=== PATIENT | female | born 1995 | race Caucasian/White ===

== ENCOUNTER 2022-06-20 08:06 | Outpatient (CLI) | payer OTHER, SELFPAY ==
--- NOTE | ~2022-06-20 | US_ITS ---
US breast RT limited DATE: 06/20/2022 08:27 INDICATION: Right breast lump TECHNIQUE: Sonographic imaging of the right breast at 2:00 and 3:00 area of clinical complaint of josr ast lump COMPARISON: None FINDINGS: The patient does not feel the lump today. No suspicious mass or shadowing, cyst or other significant sonographic finding is identified at 2:00 to 3:00. IMPRESSION: BI-RADS Category 1: Negative Reviewed, dictated and finalized at [facility]. Reviewed, dictated and finalized at location A.
== END 2022-06-20 08:07 ==
PROVIDERS: PCP Physician Assistant Medical; Visit Provider Student in an Organized Health Care Education/Training Program
DX: R92.8 Other abnormal and inconclusive findings on diagnostic imaging of breast (principal)
CPT/HCPCS: 76642

== ENCOUNTER 2022-12-10 09:29 | Outpatient (CLI) | payer OTHER, SELFPAY ==
[2022-12-10 09:57] LABS: Basophils Percent Auto 0.4 % (0.2-1.2); Eosinophils Absolute Auto 0.1 K/mm3 (0-0.3); Eosinophils Percent Auto 1.3 % (0-4.4); Hematocrit 39.5 % (37.0-47.0); Hemoglobin 12.5 g/dL (12.0-15.0); Immature Granulocyte Absolute 0.04 K/mm3 (0.00-0.031); Immature Granulocyte Percent A 0.4 % (0-0.5); Lymphocytes Absolute Auto 2.05 K/mm3 (0.9-3.2); Lymphocytes Percent Auto 21.1 % (18.3-44.2); Mean Corpuscular HGB Conc 31.6 g/dl (32-36); Mean Corpuscular Hemoglobin 26.7 pg (26-34); Mean Corpuscular Volume 84.2 fl (80-100); Mean Platelet Volume 8.9 fl (7.4-10.4); Monocytes Absolute Auto 0.5 K/mm3 (0.1-0.6); Neutrophils Percent Auto 71.8 % (45.5-73.1); Platelet Count Result 352 k/mm3 (150-375); Red Blood Count 4.69 M/mm3 (4.2-5.4); Red Cell Distribution Width 13.7 % (11.5-14.5); White Blood Count 9.7 K/mm3 (4.5-10.0)
[2022-12-10 10:10] LABS: Hemoglobin A1C 4.8 % (<5.7)
[2022-12-10 10:14] LABS: Alanine Aminotransferase 21 U/L (6-35); Albumin Level 4.2 g/dL (3.5-5.1); Alkaline Phosphatase 103 U/L (38-126); Anion Gap 7 mmol/L (8-16); Aspartate Amino Transferase 22 U/L (14-36); Bilirubin,Total 0.5 mg/dL (0.2-1.3); Blood Urea Nitrogen 10 mg/dL (7-17); Calcium 8.5 mg/dL (8.4-10.2); Carbon Dioxide 25 mmol/L (22-30); Chloride 107 mmol/L (98-107); Cholesterol 202 mg/dL (0-200); Estimated Glomerular Filt Rate > 60; Glucose 104 mg/dL (65-110); HDL Direct 40 mg/dL; Sodium 139 mmol/L (137-145); Triglycerides 114 mg/dL (<150)
[2022-12-10 10:25] LABS: LDL Cholesterol Direct 132 mg/dL
[2022-12-10 10:59] LABS: Vitamin D 25 Hydroxy 21.9 ng/mL
== END 2022-12-10 09:30 | disposition home or self-care (01) ==
PROVIDERS: PCP Physician Assistant Medical; Visit Provider Physician Assistant Medical
DX: Z00.00 Encounter for general adult medical examination without abnormal findings (principal); G43.909 Migraine, unspecified, not intractable, without status migrainosus; E55.9 Vitamin D deficiency, unspecified; I10 Essential (primary) hypertension
CPT/HCPCS: 36415; 80053; 80061; 82306; 82607; 83036; 84443; 85025

== ENCOUNTER 2024-03-09 09:39 | Outpatient (CLI) | payer OTHER, SELFPAY ==
[2024-03-09 11:38] LABS: Basophils Absolute Auto 0.1 K/mm3 (0.0-0.1); Basophils Percent Auto 0.5 % (0.2-1.2); Eosinophils Absolute Auto 0.3 K/mm3 (0-0.3); Eosinophils Percent Auto 2.2 % (0-4.4); Hematocrit 38.6 % (37.0-47.0); Hemoglobin 12.1 g/dL (12.0-15.0); Immature Granulocyte Absolute 0.05 K/mm3 (0.00-0.031); Immature Granulocyte Percent A 0.4 % (0-0.5); Lymphocytes Absolute Auto 2.15 K/mm3 (0.9-3.2); Lymphocytes Percent Auto 17.8 % (18.3-44.2); Mean Corpuscular HGB Conc 31.3 g/dl (32-36); Mean Corpuscular Hemoglobin 26.8 pg (26-34); Mean Corpuscular Volume 85.6 fl (80-100); Mean Platelet Volume 9.4 fl (7.4-10.4); Monocytes Absolute Auto 0.6 K/mm3 (0.1-0.6); Monocytes Percent Auto 4.6 % (2.6-8.5); Neutrophils Percent Auto 74.5 % (45.5-73.1); Platelet Count Result 345 k/mm3 (150-375); Red Blood Count 4.51 M/mm3 (4.2-5.4); Red Cell Distribution Width 14.2 % (11.5-14.5); White Blood Count 12.1 K/mm3 (4.5-10.0)
[2024-03-09 11:49] LABS: Alanine Aminotransferase 16 U/L (6-35); Albumin Level 4.1 g/dL (3.5-5.1); Alkaline Phosphatase 105 U/L (38-126); Anion Gap 8 mmol/L (4-12); Aspartate Amino Transferase 19 U/L (14-36); Bilirubin,Total 0.5 mg/dL (0.2-1.3); Blood Urea Nitrogen 10 mg/dL (7-17); Calcium 8.9 mg/dL (8.4-10.2); Carbon Dioxide 24 mmol/L (22-30); Chloride 107 mmol/L (98-107); Cholesterol 173 mg/dL (0-200); Estimated Glomerular Filt Rate > 60; Glucose 74 mg/dL (65-110); HDL Direct 48 mg/dL; Magnesium 1.8 mg/dL (1.6-2.3); Potassium 3.8 mmol/L (3.4-5.0); Sodium 139 mmol/L (137-145); Triglycerides 93 mg/dL (<150)
[2024-03-09 12:00] LABS: LDL Cholesterol Direct 115 mg/dL
[2024-03-09 12:41] LABS: Vitamin D 25 Hydroxy 33.2 ng/mL
== END 2024-03-09 09:40 | disposition home or self-care (01) ==
LOC: ANHLAB 09:41
PROVIDERS: PCP Physician Assistant Medical; Visit Provider Physician Assistant Medical
DX: R79.89 Other specified abnormal findings of blood chemistry (principal); E78.5 Hyperlipidemia, unspecified; E55.9 Vitamin D deficiency, unspecified; I10 Essential (primary) hypertension; Z00.00 Encounter for general adult medical examination without abnormal findings; R53.83 Other fatigue; R00.2 Palpitations; R42 Dizziness and giddiness
CPT/HCPCS: 36415; 80053; 80061; 82306; 82607; 83735; 84443; 85025

== ENCOUNTER 2024-04-06 13:45 | Outpatient (RCR) | payer OTHER, SELFPAY ==
--- NOTE | 2024-03-17 16:15 | OPREHPOC ---
Outpatient Therapy Plan of Care This is a Multidisciplinary Plan of Care that may contain components documented by all disciplines (PT, OT, and ST.) PT Problem 1 PT Problem #1 Knowledge Deficit PT Goal 1 Goal *indep with HEP Target Visit 8 PT Problem 2 PT Problem #2 Impaired Vestibular System PT Goal 1 Goal improve vestibular system: pt able to perform without symptoms: 1* supine/sit transfer 2* standing eye tracking vertical x 20 reps 3* further assessment of vestibular system/ BPPV as indicated 4* Dizziness Handicap Index rating of 4/100 Target Visit 8
--- NOTE | 2024-03-17 16:16 | PTOPEVAL1 ---
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 Onset after painting [place] and moving head up and down alot. Dizziness Handicap Index rating of 12/100. Medical history with risk factors for dizziness: migraines, HTN, anxiety, allergies and multiple meds. With the evaluation: dizziness symptoms increase with supine to sit transfer and sitting vertical eye tracking with decreased smoothness of eye motion. Horizontal & [place] testing to R and L negative. Skilled PT services are indicated for vestibular therapy--to decrease dizziness and abnormal sensations and improve eye tracking and vestibular system. Continue to assess vestibular system as treatment progresses. Plan of Care Interventions Neuro Re-education,Patient Education, Therapeutic Activities,Therapeutic Exercise PT Services Indicated Yes Treatment Frequency and 1-2x/wk for 8 visits Duration These treatments will address the objective and functional deficits as defined above. The patient will be advanced safely and appropriately in order for the patient to progress towards his/her prior level of function. Additional exercises will be introduced and as well as a comprehensive home exercise program upon discharge, if needed, ?to ensure carryover of functional gains achieved in the clinic. This treatment plan has been reviewed and agreement upon by the patient.
--- NOTE | 2024-04-21 12:49 | PCPTNOTE ---
Pt canceled appt. due to no vestibular sign or symptoms for weeks now. Pt reported HEP compliance with all vestibualr exercises.
--- NOTE | 2024-04-26 16:00 | PCPTNOTE ---
Pt NS visit for #2.
--- NOTE | 2024-04-30 11:17 | PCPTNOTE ---
LATE ENTRY for visit 03/31/2024: Pt denies any dizziness today. Assessed various position of supine to sitting, no noted symptoms reported to this date. Performed High level Vestibular exercises and neuro Re-ed: 1. standing on foam with head movements 2. standing on foam with dynamic arm movements 3. stepping up and down a stool without support looking up/down 5. Gaze stabilization training with various alternating LE and UE movement pt tolerated the session well, still no c/o dizziness. Pt states that the dizziness started that day when she was painting the house, she held off on the painting project for a while but was planning to get back to it now that she is feeling better. Therapy instructed her on monitoring if symptoms come back after she paints, also to make sure proper/ample ventilation is practiced. To follow up in the next visit. Instructed to continue core, and balance HEPs.
--- NOTE | 2024-05-05 08:01 | PCPTNOTE ---
Pt canceled due to feeling better and recent events of vestibular issues.
--- NOTE | 2024-05-10 10:52 | PCPTNOTE ---
pt did not show for today's reevaluation. Called and left voice mail message---to d/c therapy unless she calls in the next 2 days.
--- NOTE | 2024-05-20 13:34 | PTOPDC ---
Assessment and note entered by Alina Humphries, PT Discharge Report Assessment Status Discharge - Pt Not Present Diagnosis vestibular, dizziness Onset December 2023 Subjective Information pt was not seen this date. Assessment PT Clinical Summary Annel has received 3 PT sessions, from March 17 to April 06. She did not show for 2 and called/ canceled 2 appointments. Discharge PT services. The goals were not addressed. Plan of Care PT Services Indicated No
== END 2024-05-20 16:54 | disposition home or self-care (01) ==
LOC: ANHPT 13:45
PROVIDERS: PCP Physician Assistant Medical; Visit Provider Physician Assistant Medical
DX: R42 Dizziness and giddiness (principal)
CPT/HCPCS: 97161; 97530

== ENCOUNTER 2025-07-18 11:30 | Outpatient (CLI) | payer OTHER, SELFPAY ==
--- NOTE | ~2025-07-18 | XR_ITS ---
EXAMINATION: XR knee RT 3V, 07/18/2025 11:40 CDT HISTORY: S89.91XA - Unspecified injury of right lower leg, initial... COMPARISON: No comparisons available. Findings: No acute fracture or malalignment. No significant degenerative changes. Soft tissues unremarkable. Impression: No acute fracture or malalignment. Reviewed, dictated and finalized at location P. Impression: No acute fracture or malalignment.
--- OUTSIDE RECORDS SUMMARY | 2025-07-18 12:54 | XMS_ITS | Clinical Summary ---
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 Gender Identity Not on file Sexual Orientation Not on file Plan of Treatment Health Maintenance Due Date Last Done Comments Hepatitis C Virus (HCV) Screening 1997 TdaP Immunization 1997 Hepatitis B Immunization (3 of 3 - 3-dose series) 1997 1997, 1997 Human Papillomavirus (HPV) Immunization (1 - 3-dose SCDM series) 2024 Influenza Immunization (#1) 2025 SARS-COV-2 Immunization (2023- season) 2025 Respiratory Syncytial Virus (RSV) Immunization (Adult) (1 - 1-dose 75+ series) 2072 DTaP/Tdap/Td Immunization Discontinued 1997, 1997, 1997 Meningococcal Immunization (ACWY) Aged Out No longer eligible based on patient's age to complete this topic Pneumococcal Immunization Combined Aged Out No longer eligible based on patient's age to complete this topic Rotavirus Immunization Aged Out No lo nger eligible based on patient's age to complete this topic
== END 2025-07-18 11:31 | disposition home or self-care (01) ==
PROVIDERS: PCP Physician Assistant Medical; Visit Provider Physician Assistant Medical
DX: S89.91XA Unspecified injury of right lower leg, initial encounter (principal); X58.XXXA Exposure to other specified factors, initial encounter
CPT/HCPCS: 73562